=== PATIENT | male | born 1955 ===

== ENCOUNTER → 2022-08-05 07:42 | Outpatient (CLI) | payer MEDICARE, OTHER, SELFPAY ==
--- NOTE | ~2022-08-05 | MR_ITS ---
EXAMINATION: MR shoulder RT wo con DATE: 08/05/2022 08:39 INDICATION: Anterior right shoulder pain TECHNIQUE: Magnetic resonance imaging (MRI) of the right shoulder was performed without intravenous c ontrast. Sequences included axial PD-weighted FS FSE, coronal oblique PD-weighted FS FSE, coronal obl ique T2-weighted FS FSE, sagittal PD-weighted FS FSE, and sagittal T1-weighted SE. COMPARISON: None. FINDINGS: Coracoacromial arch: The acromion undersurface is curved in morphology (type II). The coracoacromial ligament is normal. M oderate acromioclavicular osteoarthritis. Rotator cuff: Moderate supraspinatus and mild infraspinatus tendinopathy. There is a partial-thickness tear measuri ng 8 mm AP along the superior facet footplate of the supraspinatus tendon. The tear involves approxim ately 50% the tendon thickness and involves or very closely approaches the articular surface. Mild li bscapularis tendinopathy with longitudinal split tear between the superficial fibers of the tendon wh ich remain contiguous with the transverse humeral ligament and the portion of the tendon attached to the lesser tuberosity. The long head biceps tendon is partially subluxed across the medial rim of the intertubercular groove and into the small split tear defect which extends up to 8 mm medially from t he collateral margin of the lesser tuberosity. No rotator cuff muscle atrophy. Biceps tendon, glenoid labrum and glenohumeral cartilage: Mild tendinopathy and longitudinal split tearing of the long head biceps tendon. There is a tear at t he base of the inferior glenoid labrum with some partial thickness fissuring the cartilage at the inf erior rim of the glenoid where there are also tiny marginal osteophytes. Fluid: Physiologic amount of fluid in the glenohumeral joint and biceps tendon sheath. No loose osteochondr al bodies. Very small amount of fluid in the subacromial/subdeltoid bursa consistent with mild bursit is. Bones: Alignment is normal. No fracture or pathologic marrow replacing process. IMPRESSION: 1. Moderate supraspinatus tendinopathy with small tear along the superior facet footplate which eithe r involves or very closely approaches the articular surface. 2. Mild subscapularis tendinopathy with small intrasubstance split tear originating along the lateral margin of the lesser tuberosity footplate and underlying medial subluxation long head biceps tendon across the medial rim of the intertubercular groove. 3. Mild tendinopathy and longitudinal split tearing of the long head biceps tendon. 4. Mild glenohumeral osteoarthritis with partial thickness chondral fissuring and labral tear along t he inferior glenoid. 5. Moderate acromioclavicular osteoarthritis. 6. Mild subacromial/subdeltoid bursitis. Reviewed, dictated and finalized at location A. IMPRESSION: 1. Moderate supraspinatus tendinopathy with small tear along the superior facet footplate which either involves or very closely approaches the articular surfa ce. 2. Mild subscapularis tendinopathy with small intrasubstance split tear origina ting along the lateral margin of the lesser tuberosity footplate and underlying medial subluxation long head biceps tendon across the medial rim of the intert ubercular groove. 3. Mild tendinopathy and longitudinal split tearing of the long head biceps ten don. 4. Mild glenohumeral osteoarthritis with partial thickness chondral fissuring a nd labral tear along the inferior glenoid. 5. Moderate acromioclavicular osteoarthritis. 6. Mild subacromial/subdeltoid bursitis.
== END ==
PROVIDERS: PCP Physician Assistant; Visit Provider Orthopaedic Surgery
DX: M25.511 Pain in right shoulder (principal); M75.81 Other shoulder lesions, right shoulder; S46.111D Strain of muscle, fascia and tendon of long head of biceps, right arm, subsequent encounter; M19.011 Primary osteoarthritis, right shoulder; M75.51 Bursitis of right shoulder
CPT/HCPCS: 73221